=== PATIENT | male | born 1985 | race Two or more races ===

== ENCOUNTER 2018-06-23 09:09 | Emergency (ER) | payer MEDICAID ==
[~2018-06-23] VITALS: Ht 165.1 cm; Wt 65.3 kg
[2018-06-23 09:09] VITALS: BP 133/77
--- NOTE | 2018-06-23 09:34 | NUR ---
32 Y/O MALE PLACED IN BED 13 WORRIED ABOUT SEXUAL CONTACT WITH UNKNOWN STRANGER.
--- NOTE | 2018-06-23 09:35 | NUR ---
PT SEEN BY . STATES THAT PT IS AT LOW RISK. CONTINUE TO MONITOR.
--- NOTE | 2018-06-23 10:07 | NUR ---
PT REQUESTING PROFILATIC TREATMENT FOR SEXUAL CONTACT
[2018-06-23 10:12] LABS: BASOPHILS % (AUTO) 0.3 % (0.0-2.0); EOSINOPHILS % (AUTO) 2.4 % (0.0-6.0); HEMATOCRIT 48 % (39-51); HEMOGLOBIN 16.2 g/dL (13.5-17.5); LYMPHOCYTES % (AUTO) 30.3 % (20.0-44.0); MEAN CORPUSCULAR HGB CONC 34 g/dl (31.0-36.0); MEAN CORPUSCULAR VOLUME 95 fL (80-96); MONOCYTES # (AUTO) 0.5 /CMM (0.1-1.30); MONOCYTES % (AUTO) 7.1 % (2.0-12.0); NEUTROPHILS # (AUTO) 3.9 /CMM (1.8-8.9); NEUTROPHILS % (AUTO) 59.9 % (43.0-81.0); PLATELET COUNT (AUTO) 271 /CMM (150-450); RDW COEFFICIENT OF VARIATION 11.8 (11.5-15.0); RED BLOOD CELL COUNT(AUTO) 5.08 MIL/uL (4.5-6.0); WHITE BLOOD COUNT (AUTO) 6.6 K/uL (4.3-11.0)
[2018-06-23 10:20] LABS: CALCIUM, SERUM 9.5 mg/dL (8.5-10.1); CREATININE 1.1 mg/dL (0.6-1.3); POTASSIUM 3.9 mmol/L (3.5-5.1)
[2018-06-23 10:25] LABS: ALBUMIN 4.4 g/dL (3.4-5.0); BILIRUBIN,TOTAL 1.4 mg/dL (0.2-1.0); TOTAL PROTEIN, SERUM 7.8 g/dL (6.4-8.2)
--- NOTE | 2018-06-23 10:36 | NUR ---
ITH RX GIVEN. PT DSCHARGED HOME TO FOLLOW UP WITH PMD.BASIC LAB TESTS NEGATIVE. SEND OUT TEST TO COME BACK IN SEVERAL DAYS. PT TO FOLLOW UP ON RESULTS. HUBERT Rocha
== END 2018-06-23 10:42 | disposition home or self-care (01) ==
LOC: ER 09:17
DX: Z00.00 Encounter for general adult medical examination without abnormal findings (principal)
CPT/HCPCS: 36415; 80053-TC; 83690-TC; 85025-TC; 86706; 87806; A4606; Z7610